=== PATIENT | female | born 1990 | race Caucasian/White ===

== ENCOUNTER 2020-10-01 12:22 | Emergency (ER) | payer OTHER ==
[~2020-10-01 12:22] MED LIST: NORFLEX 100 MG100 MG PO; PREDNISONE 50 M50 MG PO
[2020-10-01 14:11] LABS: HEMOGLOBIN 11.9 gm/dl (12.3-15.3); RED BLOOD COUNT 4.49 M/UL (4.00-5.10); WHITE BLOOD COUNT 19.2 K/UL (4.5-11.0)
[2020-10-01 14:12] LABS: BUN/CREATININE RATIO 10 (0-10)
[2020-10-01] MEDS ORDERED: CLINDAMYCIN HC150 MG PO (15:18)
== END 2020-10-01 18:20 | disposition left against medical advice (07) ==
LOC: ER1 12:22
PROVIDERS: Physician Assistant Medical
DX: A41.9 Sepsis, unspecified organism (principal); R65.20 Severe sepsis without septic shock; L03.114 Cellulitis of left upper limb; L02.413 Cutaneous abscess of right upper limb; J45.909 Unspecified asthma, uncomplicated; Z88.0 Allergy status to penicillin; Z88.1 Allergy status to other antibiotic agents
CPT/HCPCS: 80053; 83605; 85025; 87040; 87070; 87077; 87186; 87205; 96374; 96375; 99283; J1170; J3370; J7030

== ENCOUNTER 2020-10-04 23:36 | Inpatient (IN) | payer OTHER ==
[~2020-10-04] VITALS: Ht 160 cm; Wt 58.1 kg
[~2020-10-04 23:36] MED LIST changes: +CLINDAMYCIN HC150 MG PO
[2020-10-05 00:38] LABS: HEMOGLOBIN 11.6 gm/dl (12.3-15.3); RED BLOOD COUNT 4.38 M/UL (4.00-5.10)
[2020-10-05 00:59] LABS: BUN/CREATININE RATIO 7 (0-10)
--- NOTE | 2020-10-05 19:10 | NUR ---
UPON ASSESSING THE PATIENT, SHE BECAME VERY ANGRY AND LOUD. I STATED THAT WHEN SHE STARTED PD IT WOULD BE BETTER BECAUSE SHE COULD DO IT AT HOME AND THAT SHE WOULDN'T HAVE TO MISS ANY DIALYSIS DAYS OR POTENTIALLY HAVE TO COME TO THE HOSPITAL. SHE STARTED YELLING STATING "I'M SICK AND TIRED OF EVERYBODY SAYING I'M HERE BECAUSE I MISSED MY DIALYSIS. I'M HERE BECUASE I HAVE COVID." I APOLOGIZED, BUT WAS UNABLE TO CALM PATIENT. SHE BECAME LOUDER AND LOUDER. I ASKED IF SHE WOULD LIKE TO SPEAK TO THE BELT SPLICER. SHE STATED SHE WANTED A DIFFERENT NURSE AND WANTED TO TALK TO THE HOSPITAL PRESIDENT. UPON LEAVING THE ROOM, I IMMEDIATELY CALLED BELT SPLICER JORDI. SHE STATED SHE IS BUSY IN OB AND WOULD COME UP LATER. SHE STATED TO SWITCH PATIENTS WITH ANOTHER NURSE. ALL INFORMATION ABOVE GIVEN TO PAPITO AND REPORT RECEIVED ON HIS PATIENT IN ROOM 0439.
--- NOTE | 2020-10-06 05:01 | NUR ---
PATIENT HAS NOT RETURNED TO ROOM AFTER BEING GONE FOR 2 HOURS. SECURITY CALLED TO LOOK FOR PATIENT AND HER SIGNIFICANT OTHER. FLAT BED OPERATOR NOTIFIED. DR ANDERSEN NOTIFIED. INFORMED THAT PATIENT HAD SALINE LOCK IN PLACE THAT SHE UNHOOKED HERSELF FROM.
== END 2020-10-06 04:56 | disposition left against medical advice (07) | DRG 871 ==
LOC: ER1 23:36 → CDU 10-05 02:04 → M/S 10-05 16:05
PROVIDERS: Physician Assistant; ADMIT Internal Medicine
DX: A41.9 Sepsis, unspecified organism (principal); G93.41 Metabolic encephalopathy; L98.498 Non-pressure chronic ulcer of skin of other sites with other specified severity; L03.113 Cellulitis of right upper limb; L02.413 Cutaneous abscess of right upper limb; E87.2 Acidosis; Z20.822 Contact with and (suspected) exposure to COVID-19; R65.20 Severe sepsis without septic shock; E87.6 Hypokalemia; D64.9 Anemia, unspecified; F17.210 Nicotine dependence, cigarettes, uncomplicated; Z88.1 Allergy status to other antibiotic agents; Z88.0 Allergy status to penicillin; Z90.49 Acquired absence of other specified parts of digestive tract
CPT/HCPCS: 73201; 80053; 80307; 81001; 83605; 84703; 85025; 85652; 86140; 87040; 87086; 93005; 96365; 99285; J1956; J2270; J3370; J3480; J7030; J7070; Q9967; U0002

== ENCOUNTER 2021-05-23 16:34 | Emergency (ER) | payer OTHER ==
[~2021-05-23] VITALS: Ht 160 cm; Wt 57.0 kg
[2021-05-23 18:48] LABS: HEMOGLOBIN 14.7 gm/dl (12.3-15.3); RED BLOOD COUNT 5.42 M/UL (4.00-5.10); WHITE BLOOD COUNT 12.5 K/UL (4.5-11.0)
[2021-05-23 18:57] LABS: BUN/CREATININE RATIO 37 (0-10)
== END 2021-05-23 23:10 | disposition short-term general hospital (02) ==
LOC: ER1 16:34
PROVIDERS: Preventive Medicine Occupational Medicine
DX: A52.3 Neurosyphilis, unspecified (principal); H44.009 Unspecified purulent endophthalmitis, unspecified eye; I38 Endocarditis, valve unspecified; J45.909 Unspecified asthma, uncomplicated
CPT/HCPCS: 80053; 85025; 96374; 96375; 99284; J0692; J1885; J2405; J2540; J3370; J7070

== ENCOUNTER 2021-07-12 08:17 | Emergency (ER) | payer OTHER ==
[2021-07-12 08:39] LABS: HEMOGLOBIN 14.7 gm/dl (12.3-15.3); RED BLOOD COUNT 5.26 M/UL (4.00-5.10)
[2021-07-12 09:08] LABS: BUN/CREATININE RATIO 22 (0-10)
== END 2021-07-12 21:59 | disposition left against medical advice (07) ==
LOC: ER1 08:17
PROVIDERS: Emergency Medicine
DX: R56.9 Unspecified convulsions (principal); Z20.822 Contact with and (suspected) exposure to COVID-19; Z86.69 Personal history of other diseases of the nervous system and sense organs
CPT/HCPCS: 70450; 71045; 80053; 81001; 82550; 82553; 84484; 84703; 85025; 96374; 99284; J1953; J2060; U0002

== ENCOUNTER 2021-11-09 22:08 | Emergency (ER) | payer OTHER ==
[2021-11-09 22:53] LABS: HEMOGLOBIN 13.4 gm/dl (12.3-15.3); RED BLOOD COUNT 4.82 M/UL (4.00-5.10); WHITE BLOOD COUNT 9.8 K/UL (4.5-11.0)
[2021-11-09 23:21] LABS: BUN/CREATININE RATIO 31 (0-10)
[2021-11-10] MEDS ORDERED: MACROBID 100 M100 MG PO (01:51)
[2021-11-10] MEDS ORDERED: KEPPRA500 MG PO (01:51)
== END 2021-11-10 02:07 | disposition home or self-care (01) ==
LOC: ER1 22:08
PROVIDERS: Physician Assistant
DX: U07.1 COVID-19 (principal); G40.909 Epilepsy, unspecified, not intractable, without status epilepticus; S09.90XA Unspecified injury of head, initial encounter; R45.851 Suicidal ideations; N39.0 Urinary tract infection, site not specified; E87.6 Hypokalemia; Z87.81 Personal history of (healed) traumatic fracture; F17.200 Nicotine dependence, unspecified, uncomplicated; Z88.0 Allergy status to penicillin; Z88.1 Allergy status to other antibiotic agents
CPT/HCPCS: 70450; 72125; 73090; 73130; 80053; 81001; 84703; 85025; 93005; 99285; U0002

== ENCOUNTER 2021-11-15 06:01 | Emergency (ER) | payer OTHER ==
[~2021-11-15 06:01] MED LIST changes: +KEPPRA500 MG PO; +MACROBID 100 M100 MG PO
[2021-11-15 07:42] LABS: HEMOGLOBIN 14.1 gm/dl (12.3-15.3); RED BLOOD COUNT 5.32 M/UL (4.00-5.10); WHITE BLOOD COUNT 9.3 K/UL (4.5-11.0)
[2021-11-15 08:02] LABS: BUN/CREATININE RATIO 22 (0-10)
[2021-11-15] MEDS ORDERED: TYLENOL EXTRA500 MG PO (08:39)
== END 2021-11-15 09:00 | disposition home or self-care (01) ==
LOC: ER1 06:01
PROVIDERS: Physician Assistant
DX: U07.1 COVID-19 (principal); S10.91XA Abrasion of unspecified part of neck, initial encounter; F17.210 Nicotine dependence, cigarettes, uncomplicated; X83.8XXA Intentional self-harm by other specified means, initial encounter
CPT/HCPCS: 71045; 80053; 80307; 81001; 84703; 85025; 99285; G0480; U0002